=== PATIENT | male | born 1935 | race Caucasian/White ===

== ENCOUNTER → 2017-11-27 | Outpatient (CLI) | payer MEDICARE | END | disposition home or self-care (01) | LOC: RAH 12:30 | PROVIDERS: ATTEND Orthopaedic Surgery | DX: I73.89 Other specified peripheral vascular diseases (principal); I70.90 Unspecified atherosclerosis | CPT/HCPCS: 93925 ==

== ENCOUNTER 2018-08-15 06:54 | Day surgery (SDC) | payer MEDICARE ==
[2018-08-09 11:30] VITALS: BP 135/78
[2018-08-09 12:02] LABS: BASOPHILS % (AUTO) 0.3 % (0.0-5.0); EOSINOPHILS % (AUTO) 1.3 % (0.0-8.0); HEMATOCRIT 41.4 % (42-54); LYMPHOCYTES % (AUTO) 8.6 % (21.0-51.0); MEAN CORPUSCULAR HEMOGLOBIN 33.4 pg (27.0-33.0); MEAN CORPUSCULAR HGB CONC 33.7 g/dL (32.0-36.0); MONOCYTES % (AUTO) 5.6 % (3.0-13.0); NEUTROPHILS % (AUTO) 84.2 % (40.0-77.0); PLATELET COUNT (AUTO) 185 K/uL (130-400); RED BLOOD CELL COUNT(AUTO) 4.18 MIL/uL (4.50-6.20); RED CELL DISTRIBUTION WIDTH 13.6 % (11.0-15.5); WHITE BLOOD COUNT (AUTO) 8.8 K/uL (4.8-10.8)
[2018-08-09 12:13] LABS: CREATININE 1.5 mg/dL (0.5-1.5)
--- NOTE | 2018-08-09 12:37 | NUR ---
CRITICAL VALUE POTASSIUM 6.0 GINETTE CASILLAS RN NOTIFIED DR. CACERES AND ORDERED TO BE REPEATED. GINETTE SPOKE TO PATIENT TO RETURN TO THE HOSPITAL FOR REPEAT. PATIENT HERE AND POTASSIUM LAB REPEATED. ADVISED PATIENT WE WOULD NOTIFY HIM OF RESULTS AND ANY OTHER ORDERS PER DR. CACERES. PATIENT AND VERBALIZED UNDERSTANDING.
--- NOTE | 2018-08-09 13:10 | NUR ---
REPEAT POTASSIUM/ABNORMAL EKG DR. CACERES INFORMED OF REPEAT POTASSIUM 5.6 AND ATRIAL FLUTTER ON EKG. ORDERED FOR PRINTED COPIES OF LABS AND EKG TO BE TAKEN TO DR. LEMOS BY PATIENT AND FOR PATIENT TO KEEP DR. CACERES OFFICE INFORMED OF OUTCOME. SPOKE TO [place] AND WILL BE PICKING UP LABS/EKG IN AN HOUR OR SO.
--- NOTE | 2018-08-14 10:06 | NUR ---
CALLED PT TO FIND OUT STATUS OF SURGERY TO BE CLEAR TO PROCEED, PER PT HE IS STILL WAITING FOR CALL FROM DR. WOODS OFFICE TO GIVE OK. CALLED DR. MARTIN SPOKE TO KAYCE, SHE WILL CALL DR. RAMEY OFFICE TO FIND OUT IF PT OK FOR SURGERY. PENDING CALL FROM DR. MARTIN OFFICE FROM [facility]CE.
--- NOTE | 2018-08-14 14:00 | NUR ---
REPORT OF REPEAT EKG AND POTASSIUM RESULTS. ADVISED DR. MARROQUIN OF REPEAT EK AND POTASSIUM RESULTS. WANTS A MORE RECENT EKG AND POTASSIUM TO BE DONE TODAY. CALLED PATIENT OF NEEDING A REPEAT EKG AND POTASSIUM TODAY. RESULTS OF EKG AND POTASSIUM REPORTED TO DR. MARROQUIN. COPY OF EKG SHOWING ATRIAL FLUTTER SENT TO DR. MARROQUIN PER REQUEST.
[~2018-08-15] VITALS: Ht 176.5 cm; Wt 79.9 kg
[2018-08-15] VITALS (13 sets, daily range): BP systolic 106–131; BP diastolic 50–77
[~2018-08-15 06:54] MED LIST: ATOR20TA65 PO; CAPT1TAB7 PO; LATA7.5D OU; LINA5TAB PO; METF-446 PO; PRED5TAB PO; TAMS-1 PO; [UNRECOGNIZED DRUG - CODE] PO
[2018-08-15] MEDS ORDERED: LIDOCAINE PF 2% 5ML ABBOJECT ONE ×2 (07:24→08:20)
[2018-08-15] MEDS ORDERED: METHYLPREDNISOLONE SOD SUCC 40MG/ML 1ML ONE (07:25)
[2018-08-15] MEDS ORDERED: LIDOCAINE HCL 2% 20ML ONE (07:25)
[2018-08-15] MEDS ORDERED: LACTATED RINGERS 1000ML 1,000 ML IV SCH (08:00)
[2018-08-15] MEDS ORDERED: MIDAZOLAM HCL 1 MG/ML 2ML VIAL ONE (08:21)
[2018-08-15] MEDS ORDERED: PROPOFOL 10 MG/ML 20ML VIAL IV ONE (08:21)
[2018-08-15] MEDS ORDERED: ONDANSETRON HCL 4 MG/2 ML VIAL ONE (08:21)
[2018-08-15] MEDS ORDERED: ROCURONIUM 10MG/1ML SYR 10 MG/ML ML ONE (08:22)
[2018-08-15] MEDS: CEFAZOLIN SODIUM 1 GM VIAL IVP ONE ×2 (08:34→09:05)
[2018-08-15] MEDS ORDERED: FENTANYL CITRATE PF 50 MCG/1 ML 2ML VIAL ONE (08:58)
[2018-08-15] MEDS ORDERED: KETOROLAC TROMETHAMINE 30MG/ML ONE (09:20)
--- NOTE | 2018-08-15 11:40 | NUR ---
D/C PT. LEFT BY WHEELCHAIR WITH RX
== END 2018-08-15 11:20 ==
LOC: DAH 06:54
PROVIDERS: ATTEND Orthopaedic Surgery
DX: G56.01 Carpal tunnel syndrome, right upper limb (principal); M17.0 Bilateral primary osteoarthritis of knee; E11.9 Type 2 diabetes mellitus without complications; I10 Essential (primary) hypertension; Z79.899 Other long term (current) drug therapy; Z98.890 Other specified postprocedural states
CPT/HCPCS: 36415 ×3; 64721; 80048; 82948 ×2; 84132 ×2; 85025; 93005 ×2; A4248; A4649; A4930; J0690; J1885; J2001; J2250; J2405; J2704; J3010; J3490; J7120 ×2; 36591; J2920

== ENCOUNTER → 2019-02-03 | Outpatient (CLI) | payer MEDICARE | END | disposition home or self-care (01) | LOC: RAH 08:28 | PROVIDERS: ATTEND Orthopaedic Surgery | DX: M48.02 Spinal stenosis, cervical region (principal); M25.78 Osteophyte, vertebrae | CPT/HCPCS: 72141 ==

== ENCOUNTER 2019-05-20 05:53 | Day surgery (SDC) | payer MEDICARE ==
[2019-05-14 14:32] VITALS: BP 147/74
[2019-05-20] VITALS (9 sets, daily range): BP systolic 129–149; BP diastolic 68–80
[~2019-05-20] VITALS: Ht 177.8 cm; Wt 84.2 kg
[~2019-05-20 05:53] MED LIST changes: -CAPT1TAB7 PO; +CAPT25TA3 PO; +HYDR-4064 PO; -METF-446 PO; +PRED1TAB PO; -PRED5TAB PO; -[UNRECOGNIZED DRUG - CODE] PO
[2019-05-20] MEDS ORDERED: CEFAZOLIN SODIUM 1 GM VIAL ONE (06:30)
[2019-05-20] MEDS ORDERED: SODIUM CHLORIDE 0.9% 1000ML 1,000 ML IV ONE (06:30)
[2019-05-20 07:01] LABS: HEMATOCRIT 39.1 % (42-54); MEAN CORPUSCULAR HEMOGLOBIN 31.2 pg (27.0-33.0); MEAN CORPUSCULAR VOLUME 94.7 fL (79-99); PLATELET COUNT (AUTO) 191 K/uL (130-400); RED BLOOD CELL COUNT(AUTO) 4.13 MIL/uL (4.50-6.20); RED CELL DISTRIBUTION WIDTH 13.3 % (11.0-15.5); WHITE BLOOD COUNT (AUTO) 5.7 K/uL (4.8-10.8)
[2019-05-20] MEDS ORDERED: MIDAZOLAM HCL 1 MG/ML 2ML VIAL ONE (07:19)
[2019-05-20] MEDS ORDERED: LIDOCAINE PF 2% 5ML ABBOJECT ONE (07:19)
[2019-05-20] MEDS ORDERED: FENTANYL CITRATE PF 50 MCG/1 ML 2ML VIAL ONE (07:19)
[2019-05-20] MEDS ORDERED: PROPOFOL 10 MG/ML 20ML VIAL IV ONE (07:19)
[2019-05-20] MEDS ORDERED: DEXAMETHASONE SOD PHOSPHATE 4 MG/ML 1ML VIAL ONE ×3 (07:21→07:54)
[2019-05-20] MEDS ORDERED: ONDANSETRON HCL 4 MG/2 ML VIAL ONE (07:21)
[2019-05-20] MEDS ORDERED: LIDOCAINE HCL MDV 0.5% 50ML VIAL IJ ONE (07:25)
[2019-05-20 07:51] LABS: EOSINOPHILS % (MANUAL) 1 % (1-6); LYMPHOCYTES % (MANUAL) 25 % (22-44); MAN.DIFF COMMENT-IMPRESSION MANUAL DIFFERENTIAL; MONOCYTES % (MANUAL) 9 % (2-9); SEGMENTED NEUTROPHILS % 65 % (40-70)
[2019-05-20 07:54] LABS: PLATELET MORPHOLOGY COMMENT ADEQUATE
[2019-05-20] MEDS ORDERED: CEFAZOLIN SODIUM 1 GM VIAL IVP ONE (08:00)
--- NOTE | 2019-05-20 09:05 | NUR ---
Received pt from PACU from [facility]. Pt awake, alert, in no apparent signs of distress. Pt has a block to right arm, arm wrapped and splinted, dressing checked for tightness, does not appear to tight, signs of good peripheral circulation to fingers. Pt encouraged to keep right arm elevated. Pt complains of pain to left arm. Pt states they have been taking their prescription for hydrocodone for pain at home. Pt granted permission to take dose of home medication for pain relief of left arm. Pt's spouse states that the doctor is aware of the pain and will be looking into possibly doing surgery after the right wrist heals.
--- NOTE | 2019-05-20 10:20 | NUR ---
Pt discharged home, ambulating, tolerating fluids well, voided just prior to discharge. PT denies any severe pain, nausea, or dizziness. Pt reports some relief of pain to left arm, however, pain medication needs more time to fully take effect. Arm remains in splint, dressing clean, dry and intact c good peripheral circulation to fingers. Pt encouraged to keep right arm elevated. Pt and spouse deny any further questions at this time.
== END 2019-05-20 10:20 | disposition home or self-care (01) ==
LOC: DAH 05:53
PROVIDERS: ATTEND Neurological Surgery
DX: G56.01 Carpal tunnel syndrome, right upper limb (principal); M62.541 Muscle wasting and atrophy, not elsewhere classified, right hand; I49.1 Atrial premature depolarization
CPT/HCPCS: 36415; 64721; 82948 ×2; 85025; 93005; A4215; A4221; A4222; A4223; A4663; A6260; J0690; J1100 ×3; J2250; J2405; J2704; J3010; J3490; J7030; J2001

== ENCOUNTER 2019-12-04 06:03 | Inpatient (IN) | payer MEDICARE ==
[2019-11-26 14:57] LABS: BASOPHILS % (AUTO) 0.6 % (0.0-5.0); EOSINOPHILS % (AUTO) 0.8 % (0.0-8.0); HEMATOCRIT 42.2 % (42-54); LYMPHOCYTES % (AUTO) 9.1 % (21.0-51.0); MEAN CORPUSCULAR HEMOGLOBIN 32.4 pg (27.0-33.0); MEAN CORPUSCULAR HGB CONC 33.4 g/dL (32.0-36.0); MONOCYTES % (AUTO) 7.6 % (3.0-13.0); NEUTROPHILS % (AUTO) 81.6 % (40.0-77.0); PLATELET COUNT (AUTO) 202 K/uL (130-400); RED BLOOD CELL COUNT(AUTO) 4.35 MIL/uL (4.50-6.20); RED CELL DISTRIBUTION WIDTH 13.7 % (11.0-15.5); WHITE BLOOD COUNT (AUTO) 6.6 K/uL (4.8-10.8)
[2019-11-26 15:12] LABS: CREATININE 1.5 mg/dL (0.5-1.5); POTASSIUM 4.2 mmol/L (3.5-5.1)
[2019-11-26 15:14] LABS: INR 0.92 (0.85-1.15)
[2019-12-03 15:21] VITALS: BP 145/74
[~2019-12-04] VITALS: Ht 180.3 cm; Wt 83.9 kg
[2019-12-04] VITALS (29 sets, daily range): BP systolic 112–167; BP diastolic 65–83
[~2019-12-04 06:03] MED LIST changes: +ACET325T51 PO; +CEFAZOLIN SODIUM 1 GM VIAL IVP SCH; +CYAN250014 PO; +GLIM1TAB18 PO; +HYDR-4379 PO; +HYDR12.54 PO; -PRED1TAB PO; +PRED5TAB PO; +TEST5GEL17 TD
[2019-12-04] MEDS ORDERED: LIDOCAINE PF 2% 5ML ABBOJECT ONE (07:38)
[2019-12-04] MEDS ORDERED: ONDANSETRON HCL 4 MG/2 ML VIAL ONE (07:38)
[2019-12-04] MEDS ORDERED: PROPOFOL 10 MG/ML 20ML VIAL IV ONE (07:39)
[2019-12-04] MEDS ORDERED: ROCURONIUM 10MG/1ML SYR 10 MG/ML ML ONE (07:39)
[2019-12-04] MEDS ORDERED: MIDAZOLAM HCL 1 MG/ML 2ML VIAL ONE (07:39)
[2019-12-04] MEDS ORDERED: FENTANYL CITRATE PF 50 MCG/1 ML 2ML VIAL ONE ×2 (07:40→12:00)
[2019-12-04] MEDS ORDERED: ROPIVACAINE 0.5% 5MG/ML 30ML IJ ONE (07:45)
[2019-12-04] MEDS ORDERED: DEXAMETHASONE SOD PHOSPHATE 10MG/ML 1ML VIAL ONE (07:46)
[2019-12-04] MEDS ORDERED: LIDOCAINE 2%-EPI 1:200,000 20 ML VIAL IJ ONE (07:46)
[2019-12-04] MEDS ORDERED: LACTATED RINGERS 1000ML 1,000 ML IV ONE (07:53)
[2019-12-04] MEDS ORDERED: TRANEXAMIC ACID 1000MG/10ML ONE (08:30)
[2019-12-04] MEDS: TESTOSTERONE TD SCH (09:00)
[2019-12-04] MEDS: HYDROCHLOROTHIAZIDE 25 MG TABLET PO SCH (09:00)
[2019-12-04] MEDS: GLIMEPIRIDE 2 MG TABLET PO SCH (09:00)
[2019-12-04] MEDS: LISINOPRIL 5 MG TABLET PO SCH (09:00)
[2019-12-04] MEDS ORDERED: EPHEDRINE SULFATE 50 MG/ML AMPULE ONE (10:13)
[2019-12-04] MEDS ORDERED: GLYCOPYRROLATE 1 MG/5 ML SYRINGE ONE (10:57)
[2019-12-04] MEDS ORDERED: NEOSTIGMINE 5MG/5ML SYR IV ONE (10:57)
[2019-12-04] MEDS: SODIUM CHLORIDE 0.9% 1000ML 1,000 ML IV SCH ×2 (11:02→21:02)
[2019-12-04] MEDS: ACETAMINOPHEN EXTRA STRENGTH 500 MG TABLET PO SCH ×2 (11:15→20:10)
[2019-12-04] MEDS ORDERED: OXYCODONE HCL 5 MG TAB PO PRN (11:15)
[2019-12-04] MEDS ORDERED: ONDANSETRON HCL 4 MG/2 ML VIAL IVP PRN (11:15)
[2019-12-04] MEDS ORDERED: FENTANYL 25 MCG/HR PATCH TD SCH (11:15)
[2019-12-04] MEDS ORDERED: TRAMADOL HCL 50 MG TABLET PO PRN (11:15)
[2019-12-04] MEDS ORDERED: MEPERIDINE-PF 25 MG/ML SYG ONE (11:49)
[2019-12-04] MEDS ORDERED: HYDROMORPHONE 1 MG/1 ML AMP ONE (12:18)
--- NOTE | 2019-12-04 13:05 | NUR ---
SPOKE WITH DR CACERES RE: PT CONT TO C/O PAIN. DR CACERES STATED TO TAKE PT TO FLOOR AND HAVE NURSE PLACE FENTANYL PATCH ON PT. STATES PT IS AT BASELINE AND OK TO TRANSFER Addendum: 12/04/19 at 1322 by GABRIEL BLACKBURN RN RN Amended: Links added.
[2019-12-04] MEDS: OXYCODONE HCL 5 MG TAB PO PRN ×2 (13:51→17:09)
[2019-12-04] MEDS: KETOROLAC TROMETHAMINE 15MG/ML IV PRN ×2 (15:53→20:11)
[2019-12-04] MEDS: CEFAZOLIN SODIUM 1 GM VIAL IVP SCH ×2 (16:07→23:45)
[2019-12-04] MEDS: FAMOTIDINE 20MG TAB 20 MG TAB PO SCH (20:07)
[2019-12-04] MEDS: ASPIRIN 81 MG EC TAB PO SCH (20:10)
[2019-12-04] MEDS: LATANOPROST 2.5 ML DROPS OU SCH (21:00)
[2019-12-04] MEDS: HYDROMORPHONE PCA 10 MG/50 ML 50 ML IV PRN (21:43)
[2019-12-04] MEDS: HYDROMORPHONE 1 MG/1 ML AMP IVP PRN ×2 (22:14→23:39)
[2019-12-05] VITALS (8 sets, daily range): BP systolic 117–171; BP diastolic 61–104
[2019-12-05] MEDS: HYDROMORPHONE 1 MG/1 ML AMP IVP PRN ×3 (01:06→05:00)
[2019-12-05] MEDS: ACETAMINOPHEN EXTRA STRENGTH 500 MG TABLET PO SCH ×3 (02:50→21:27)
[2019-12-05 03:43] LABS: HEMATOCRIT 35.9 % (42-54); MEAN CORPUSCULAR HEMOGLOBIN 32.6 pg (27.0-33.0); MEAN CORPUSCULAR HGB CONC 33.7 g/dL (32.0-36.0); MEAN CORPUSCULAR VOLUME 96.8 fL (79-99); RED BLOOD CELL COUNT(AUTO) 3.71 MIL/uL (4.50-6.20); WHITE BLOOD COUNT (AUTO) 10.1 K/uL (4.8-10.8)
[2019-12-05 03:57] LABS: CREATININE 1.4 mg/dL (0.5-1.5); POTASSIUM 4.4 mmol/L (3.5-5.1)
[2019-12-05] MEDS: SODIUM CHLORIDE 0.9% 1000ML 1,000 ML IV SCH (07:02)
[2019-12-05] MEDS: LISINOPRIL 5 MG TABLET PO SCH (08:01)
[2019-12-05] MEDS: FAMOTIDINE 20MG TAB 20 MG TAB PO SCH ×2 (08:01→21:26)
[2019-12-05] MEDS: LINAGLIPTIN 5 MG TABLET PO SCH (08:01)
[2019-12-05] MEDS: HYDROCHLOROTHIAZIDE 25 MG TABLET PO SCH (08:01)
[2019-12-05] MEDS: GLIMEPIRIDE 2 MG TABLET PO SCH (08:02)
[2019-12-05] MEDS: ASPIRIN 81 MG EC TAB PO SCH ×2 (08:02→21:26)
[2019-12-05] MEDS: PREDNISONE 5 MG TABLET PO SCH (08:02)
[2019-12-05] MEDS: TAMSULOSIN HCL 0.4 MG CAP.ER.24H PO SCH (08:02)
[2019-12-05] MEDS: POLYETHYLENE GLYCOL 3350 17 GM POWD.PACK PO SCH (08:03)
[2019-12-05] MEDS: TESTOSTERONE TD SCH (08:03)
[2019-12-05] MEDS: CYANOCOBALAMIN (VITAMIN B-12) 1,000 MCG TABLET PO SCH (08:03)
[2019-12-05] MEDS: ATORVASTATIN CALCIUM 20 MG TABLET PO SCH (08:03)
--- NOTE | 2019-12-05 10:06 | NUR ---
SPOKE TO MINGO WILL, REGARDING PT WEIGHT BEARING STATUS. PER MINGO WILL, PT IS NWB LEFT LEG FOR 6 WEEKS.
--- NOTE | 2019-12-05 14:13 | NUR ---
DCP CM met with pt discussed dc plans. Pt is independent prior to surgery, lives at home with spouse. Pt has a standard walker no wheels, hospital bed, shower chair, bedside commode, wheelchair, cane. Pt verbalized Dr Cruz's office set up Home Health but does not know which company. Feels safe to go back home, still drives, spouse able to assist with transportation and needs as necessary. DC plan to home once stable. CM to cont to follow up. Addendum: 12/05/19 at 1417 by MAGDALENO MANN LVN CM Amended: Links added.
--- NOTE | 2019-12-05 14:30 | NUR ---
CM Note: [facility] approval CM spoke to Linnea harden/[facility], verified set up by Dr Cruz's office. As per Linnea pt has approval and will see pt day after DC. Clinicals faxed, confirmation received. Primary nurse aware to give report once pt ready to DC. CM to cont to follow up.
[2019-12-05] MEDS: LATANOPROST 2.5 ML DROPS OU SCH (21:00)
[2019-12-05] MEDS: HYDROMORPHONE PCA 10 MG/50 ML 50 ML IV PRN (21:30)
[2019-12-05] MEDS ORDERED: DIPHENHYDRAMINE HCL 25 MG CAPSULE ONE (21:45)
[2019-12-06 03:34] VITALS: BP 151/73
[2019-12-06] MEDS: ACETAMINOPHEN EXTRA STRENGTH 500 MG TABLET PO SCH ×3 (04:50→19:51)
[2019-12-06 08:17] VITALS: BP 141/72
[2019-12-06] MEDS: LINAGLIPTIN 5 MG TABLET PO SCH (08:40)
[2019-12-06] MEDS: HYDROCHLOROTHIAZIDE 25 MG TABLET PO SCH (08:40)
[2019-12-06] MEDS: TAMSULOSIN HCL 0.4 MG CAP.ER.24H PO SCH (08:40)
[2019-12-06] MEDS: TESTOSTERONE TD SCH (08:41)
[2019-12-06] MEDS: PREDNISONE 5 MG TABLET PO SCH (08:41)
[2019-12-06] MEDS: LISINOPRIL 5 MG TABLET PO SCH (08:41)
[2019-12-06] MEDS: FAMOTIDINE 20MG TAB 20 MG TAB PO SCH ×2 (08:41→19:49)
[2019-12-06] MEDS: ATORVASTATIN CALCIUM 20 MG TABLET PO SCH (08:41)
[2019-12-06] MEDS: GLIMEPIRIDE 2 MG TABLET PO SCH (08:41)
[2019-12-06] MEDS: POLYETHYLENE GLYCOL 3350 17 GM POWD.PACK PO SCH (08:41)
[2019-12-06] MEDS: CYANOCOBALAMIN (VITAMIN B-12) 1,000 MCG TABLET PO SCH (08:41)
[2019-12-06] MEDS: ASPIRIN 81 MG EC TAB PO SCH ×2 (08:41→19:51)
[2019-12-06] MEDS ORDERED: HYDROMORPHONE 1 MG/1 ML AMP IVP PRN (10:45)
[2019-12-06] MEDS ORDERED: FENTANYL 50 MCG/HR PATCH TD SCH (10:45)
[2019-12-06 12:50] VITALS: BP 132/61
[2019-12-06] MEDS: OXYCODONE HCL 5 MG TAB PO PRN ×2 (15:40→19:51)
[2019-12-06 16:31] VITALS: BP 134/65
[2019-12-06 20:00] VITALS: BP 113/54
[2019-12-06] MEDS: LATANOPROST 2.5 ML DROPS OU SCH (21:00)
[2019-12-07] VITALS (7 sets, daily range): BP systolic 100–145; BP diastolic 53–75
[2019-12-07] MEDS: ACETAMINOPHEN EXTRA STRENGTH 500 MG TABLET PO SCH ×3 (03:55→22:04)
[2019-12-07] MEDS: FAMOTIDINE 20MG TAB 20 MG TAB PO SCH ×2 (08:14→20:43)
[2019-12-07] MEDS: GLIMEPIRIDE 2 MG TABLET PO SCH (08:14)
[2019-12-07] MEDS: LISINOPRIL 5 MG TABLET PO SCH (08:14)
[2019-12-07] MEDS: CYANOCOBALAMIN (VITAMIN B-12) 1,000 MCG TABLET PO SCH (08:14)
[2019-12-07] MEDS: TAMSULOSIN HCL 0.4 MG CAP.ER.24H PO SCH (08:14)
[2019-12-07] MEDS: HYDROCHLOROTHIAZIDE 25 MG TABLET PO SCH (08:15)
[2019-12-07] MEDS: LINAGLIPTIN 5 MG TABLET PO SCH (08:15)
[2019-12-07] MEDS: OXYCODONE HCL 5 MG TAB PO PRN ×2 (08:15→20:43)
[2019-12-07] MEDS: PREDNISONE 5 MG TABLET PO SCH (08:15)
[2019-12-07] MEDS: ASPIRIN 81 MG EC TAB PO SCH ×2 (08:15→20:43)
[2019-12-07] MEDS: ATORVASTATIN CALCIUM 20 MG TABLET PO SCH (08:15)
[2019-12-07] MEDS: TESTOSTERONE TD SCH (08:16)
[2019-12-07] MEDS: POLYETHYLENE GLYCOL 3350 17 GM POWD.PACK PO SCH (08:16)
[2019-12-07] MEDS ORDERED: BISACODYL 10 MG SUPP.RECT RC PRN (11:15)
[2019-12-07] MEDS: LATANOPROST 2.5 ML DROPS OU SCH (20:43)
[2019-12-08 03:54] VITALS: BP 124/68
[2019-12-08] MEDS: OXYCODONE HCL 5 MG TAB PO PRN ×2 (05:08→12:07)
[2019-12-08] MEDS: ACETAMINOPHEN EXTRA STRENGTH 500 MG TABLET PO SCH ×2 (05:10→11:15)
[2019-12-08 07:30] VITALS: BP 123/61
[2019-12-08] MEDS: FAMOTIDINE 20MG TAB 20 MG TAB PO SCH (08:19)
[2019-12-08] MEDS: PREDNISONE 5 MG TABLET PO SCH (08:19)
[2019-12-08] MEDS: LINAGLIPTIN 5 MG TABLET PO SCH (08:19)
[2019-12-08] MEDS: POLYETHYLENE GLYCOL 3350 17 GM POWD.PACK PO SCH (08:19)
[2019-12-08] MEDS: GLIMEPIRIDE 2 MG TABLET PO SCH (08:20)
[2019-12-08] MEDS: ASPIRIN 81 MG EC TAB PO SCH (08:23)
[2019-12-08] MEDS: TAMSULOSIN HCL 0.4 MG CAP.ER.24H PO SCH (08:23)
[2019-12-08] MEDS: ATORVASTATIN CALCIUM 20 MG TABLET PO SCH (08:23)
[2019-12-08] MEDS: CYANOCOBALAMIN (VITAMIN B-12) 1,000 MCG TABLET PO SCH (08:23)
[2019-12-08] MEDS: LISINOPRIL 5 MG TABLET PO SCH (08:25)
[2019-12-08] MEDS: HYDROCHLOROTHIAZIDE 25 MG TABLET PO SCH (08:26)
[2019-12-08] MEDS: TESTOSTERONE TD SCH (08:56)
[2019-12-08 11:00] VITALS: BP 117/55
--- NOTE | 2019-12-08 15:50 | NUR ---
Patient was given discharge teaching at 1400. Patient was given instructions about physical activity, patient is weight bearing as tolerated; patient was updated on new prescription orders regarding aspirin and fentanyl patch. Aspirin was cut down from tw0 81mg tablets to only 1 81mg tablet; fentanyl patch if not suitable for pain control, patient can apply 2 fentanyl patches for pain. Incision care was given, patient told that LAUREN dressing is waterproof and to shower, not bathe with it. Patient was notified of date and time of follow up appointments. Patient was educated on signs and symptoms of infection, redness, swelling, intolerable pain; patient was told to alert doctor or emergency services if needed. Use assistive devices as needed until told otherwise by doctor. Control pain by taking new prescriptions as prescribed. Patient understood teaching and understood instructions.
--- NOTE | 2019-12-08 16:01 | NUR ---
Patient was scheduled 2 tylenol extra strength and was going to be given 2 oxycodone tabs to help with physical therapy. Patient denied both medications at first, patient stated "he was feeling well and didnt think he needed them". Medication was returned to return bin, patient ambulated a few minutes later and then requested for 2 oxycodone tabs; patient was administered 2 oxycodone tabs and refused tylenol.
--- NOTE | 2019-12-08 16:05 | NUR ---
Patients LAUREN dressing was changed before discharged. Patient was notified to remove once Dr. Cardoso implied at follow up appointment. Spoke to Linnea Burns at [facility] and gave report on oJse Best.
== END 2019-12-08 14:45 | disposition home health service (06) | DRG 470 ==
LOC: DAH 06:03 → 3BH 06:04 → EDSTATUS 09:00
PROVIDERS: ADMIT Orthopaedic Surgery; ATTEND Orthopaedic Surgery
PROC: 0SRD0JA Replacement of Left Knee Joint with Synthetic Substitute, Uncemented, Open Approach (ICD-10-PCS; principal; 2019-12-04 09:24)
PROC: 3E0T3BZ Introduction of Anesthetic Agent into Peripheral Nerves and Plexi, Percutaneous Approach (ICD-10-PCS; 2019-12-04 09:24)
DX: M17.12 Unilateral primary osteoarthritis, left knee (principal); M24.562 Contracture, left knee; I10 Essential (primary) hypertension; E11.9 Type 2 diabetes mellitus without complications; Z20.828 Contact with and (suspected) exposure to other viral communicable diseases
CPT/HCPCS: 36415; 80048; 82948; 85025; 85027; 85610; 85730; 86850; 86900; 86901; 87641; 93005; 97039; G0378; J0690; J1100; J1170; J1885; J2001; J2175; J2250; J2405; J2704; J2710; J2795; J3010; J3490; J7030; J7120; J7512; Q0163; U0003

== ENCOUNTER → 2022-08-31 | Outpatient (CLI) | payer MEDICARE ==
[~2022-08-31] MED LIST changes: -CEFAZOLIN SODIUM 1 GM VIAL IVP SCH; -HYDR-4064 PO
== END | disposition home or self-care (01) ==
LOC: SHCH 10:02
PROVIDERS: ATTEND Internal Medicine Cardiovascular Disease
DX: I65.23 Occlusion and stenosis of bilateral carotid arteries (principal)
CPT/HCPCS: 93880